=== PATIENT | female | born 1995 | race Caucasian/White ===

== ENCOUNTER 2021-07-18 22:59 | Emergency (ER) | payer MEDICARE, MEDICAID ==
[~2021-07-18] VITALS: Ht 172.7 cm; Wt 59.1 kg
[2021-07-18] MEDS ORDERED: iohexol 300mg/ml 100ml inj. ONE (23:35)
--- NOTE | 2021-07-18 23:38 | NUR ---
PT ROOMED IN BED 1. ASSUMED CARE OF PT. MD HAS SEEN PT.
[2021-07-19 00:07] LABS: BASOPHILS # (AUTO) 0.1 X10'3 (0-0.2); BASOPHILS % (AUTO) 0.8 % (0-1); EOSINOPHILS # (AUTO) 0.2 X10'3 (0-0.9); EOSINOPHILS % (AUTO) 2.6 % (0-6); HEMATOCRIT 35.9 % (35.0-45.0); HEMOGLOBIN 12.6 g/dl (12.0-16.0); LYMPHOCYTES # (AUTO) 2.2 X10'3 (1.1-4.8); LYMPHOCYTES % (AUTO) 25.6 % (21-51); MEAN CORPUSCULAR HEMOGLOBIN 34.5 PG (27.0-31.0); MEAN CORPUSCULAR HGB CONC 35.1 g/dL (33.0-36.5); MEAN CORPUSCULAR VOLUME 98.4 FL (78-98); MEAN PLATELET VOLUME 7.9 FL (7.4-10.4); MONOCYTES # (AUTO) 0.7 X10'3 (0-0.9); MONOCYTES % (AUTO) 8.3 % (2-12); NEUTROPHILS # (AUTO) 5.5 X10'3 (1.8-7.7); NEUTROPHILS % (AUTO) 62.7 % (42-75); PLATELET COUNT 361 X10'3 (140-440); RED BLOOD COUNT 3.64 X10'6 (4.20-5.60); RED CELL DISTRIBUTION WIDTH 13.5 % (11.5-14.5); WHITE BLOOD COUNT 8.7 X10'3 (4.5-11.0)
[2021-07-19 00:25] LABS: HCG SERUM QL NEGATIVE
[2021-07-19 00:31] LABS: ALANINE AMINOTRANSFERASE 20 U/L (12-78); ALBUMIN 2.9 G/DL (3.4-5.0); ALKALINE PHOSPHATASE 73 IU/L (46-116); ANION GAP 9 (8-16); ASPARTATE AMINO TRANSFERASE 4 U/L (10-37); BILIRUBIN,TOTAL 0.2 MG/DL (0.1-1.0); BLOOD UREA NITROGEN 7 MG/DL (7-18); BUN/CREATININE RATIO 10.3 (6.6-38.0); CALCIUM 8.1 MG/DL (8.5-10.1); CHLORIDE 107 MMOL/L (99-107); CREATINE KINASE 58 U/L (26-192); CREATININE 0.68 MG/DL (0.40-0.90); ETHANOL < 0.010 GM/DL (0.0-0.010); GLUCOSE 99 MG/DL (70-104); SODIUM 142 MMOL/L (135-145); TOTAL CARBON DIOXIDE 26.4 MMOL/L (24-32); TOTAL PROTEIN 5.9 G/DL (6.4-8.2); eGFR > 90 ML/MIN
[2021-07-19 00:44] LABS: POTASSIUM 2.6 MMOL/L (3.5-5.1)
[2021-07-19] MEDS ORDERED: potassium Cl 20 mEq SR tablet PO STA (00:45)
[2021-07-19 01:17] LABS: CLARITY,URINE CLEAR (Clear); COLOR,URINE YELLOW (Yellow); GLUCOSE, URINE NEGATIVE (Neg); KETONES,URINE NEGATIVE (Neg); LEUKOCYTE ESTERASE ,URINE NEGATIVE (Neg); NITRITES, URINE NEGATIVE (Neg); OCCULT BLOOD,URINE NEGATIVE (Neg); PROTEIN,URINE NEGATIVE (Neg)
[2021-07-19 01:20] LABS: URINE AMPHETAMINE SCREEN NEGATIVE (Neg); URINE BARBITUATE SCREEN NEGATIVE (Neg); URINE BENZODIAZEPINES SCREEN NEGATIVE (Neg); URINE CANNABINOID SCREEN POSITIVE (Neg); URINE COCAINE SCREEN NEGATIVE (Neg); URINE METHADONE SCREEN NEGATIVE (Neg); URINE OPIATE SCREEN NEGATIVE (Neg); URINE PHENCYCLIDINE SCREEN NEGATIVE (Neg)
[2021-07-19 01:22] LABS: UA COLLECTION TYPE CLN CATCH MIDSTREAM
[2021-07-19] MEDS ORDERED: potassium Cl 10 mEq/100mL bag IV SCH (01:50)
[2021-07-19] MEDS ORDERED: HYDR-3965 PO (01:56)
[2021-07-19] MEDS ORDERED: POTA10TA37 PO (02:00)
[2021-07-19 02:30] VITALS: BP 118/62
== END 2021-07-19 02:34 | disposition left against medical advice (07) ==
LOC: ER 23:00
DX: S22.41XA Multiple fractures of ribs, right side, initial encounter for closed fracture (principal); S00.11XA Contusion of right eyelid and periocular area, initial encounter; S10.91XA Abrasion of unspecified part of neck, initial encounter; E87.6 Hypokalemia; Z90.710 Acquired absence of both cervix and uterus; Z59.00 Homelessness unspecified; Z88.2 Allergy status to sulfonamides; Z79.899 Other long term (current) drug therapy; W22.11XA Striking against or struck by driver side automobile airbag, initial encounter; Y93.89 Activity, other specified; Y92.89 Other specified places as the place of occurrence of the external cause; Y99.8 Other external cause status
CPT/HCPCS: 36415; 70450; 70486; 71260; 72125; 74177; 80053; 80305; 80320; 81003; 82550; 82553; 83874; 84484; 84703; 85025; 93005; 99285; Q9967